=== PATIENT | female | born 1985 | race Hispanic/Latino ===

== ENCOUNTER 2017-08-03 10:36 | Emergency (ER) | payer BC ==
[~2017-08-03] VITALS: Ht 157.5 cm; Wt 74.4 kg
[2017-08-03] MEDS ORDERED: ORTHO TRI-CYCL1 EACH (11:32)
[2017-08-03 12:01] VITALS: BP 110/68
== END 2017-08-03 11:52 | disposition home or self-care (01) ==
LOC: FSED 10:36
DX: R55 Syncope and collapse (principal); F41.9 Anxiety disorder, unspecified
CPT/HCPCS: 80053; 81003; 81025; 82553; 84484; 85025; 93005; 99283